=== PATIENT | female | born 1945 | race Hispanic/Latino ===

== ENCOUNTER → 2021-05-06 13:54 | Outpatient (CLI) | payer MEDICARE, SELFPAY ==
[2021-05-06 15:19] LABS: Add Manual Diff / Slide Review NO; Basophils Absolute Auto 0 /uL (0-100); Basophils Percent Auto 0.8 % (0-2); Eosinophils Absolute Auto 0 /uL (0-450); Eosinophils Percent Auto 0.9 % (2-4); Hematocrit 38.1 % (36-46); Hemoglobin 12.7 g/dL (12.0-16.0); Lymphocytes Absolute Auto 1300 /uL (1100-4500); Lymphocytes Percent Auto 24.3 % (25-40); Mean Corpuscular HGB Conc 33.3 % (30-36); Mean Corpuscular Hemoglobin 27.8 PG (26-34); Mean Corpuscular Volume 83.4 fL (80-100); Monocytes Absolute Auto 300 /uL (0-900); Monocytes Percent Auto 5.9 % (3-14); Neutrophils Absolute Auto 3600 /uL (1500-7000); Neutrophils Percent Auto 68.1 % (50-75); Platelet Count 238 X10^3/uL (150-400); Red Blood Cell Count 4.57 X10^6/uL (4.0-5.2); Red Cell Distribution Width 13.8 % (11.6-14.8); White Blood Cell Count 5.3 X10^3/uL (4.5-11.0)
[2021-05-06 15:31] LABS: Hemoglobin A1C% w Est Avg Glu 7.2 % (4.0-6.0)
[2021-05-06 16:00] LABS: BUN Creatinine Ratio 24.3 (6-22); Blood Urea Nitrogen 17 mg/dL (7-17); Calcium 10.4 mg/dL (8.4-10.2); Carbon Dioxide 31 mmol/L (22-32); Chloride 103 mmol/L (98-107); Estimated Glomerular Filt Rate > 60.0 mL/min (>60); Glucose 144 mg/dL (80-110); HEMOLYSIS < 15 (0-50); Potassium 4.1 mmol/L (3.4-5.1); Sodium 141 mmol/L (137-145)
== END ==
PROVIDERS: Referring Provider Orthopaedic Surgery Orthopaedic Surgery of the Spine; Visit Provider Orthopaedic Surgery Orthopaedic Surgery of the Spine
DX: Z01.818 Encounter for other preprocedural examination (principal); R73.9 Hyperglycemia, unspecified
CPT/HCPCS: 36415; 80048; 83036; 85025; 93005; 93010

== ENCOUNTER → 2021-05-14 10:58 | Outpatient (CLI) | payer MEDICARE, SELFPAY ==
--- NOTE | 2021-05-14 11:07 | DI.CT.S_ITS ---
PROCEDURE: CT LUMBAR SPINE WO CON INDICATIONS: Spinal stenosis, lumbar region with neurogenic cla TECHNIQUE: Noncontrast 3 mm thick sections acquired from the T12 level to the sacrum. Sagittal and coronal reformats were constructed. For radiation dose reduction, the following was used: automated exposure control. COMPARISON: [facility] Outside Film, MR, MR LUMBAR SPINE WITHOUT CONTRAST, 01/15/2021, 12:55. FINDINGS: Image quality: Excellent. Bones: No visualized fracture or dislocation. No suspicious osseous lesions. There is severe disc space narrowing at L4-5, L5-S1 with vacuum disc. Multilevel anterior osteophytes are present most severe at L4 and L5. Mild disc bulges are present at L4-5 and L5-S1. Mild spinal stenosis is present at L3-4, moderate L4-5, minimal L5-S1. Minimal left foraminal narrowing is present at L3-4, moderate bilateral, right greater than left at L4-5, moderate bilateral foraminal narrowing L5-S1. Multilevel facet and ligamentum flavum hypertrophy are present. Overall appearance is stable compared to prior exam. Soft tissues: No retroperitoneal masses or hematomas. Visualized aorta is normal in caliber. IMPRESSION: 1. Multilevel spinal stenosis most notable at L4-5 secondary to disc bulge with contributing effect of facet/ligamentum flavum arthropathy. 2. Multilevel foraminal narrowing most notable at L5-S1 predominantly secondary to facet arthropathy. Dictated by: Tianna Hamm M.D. on 05/14/2021 at 13:02 Approved by: Tianna Hamm M.D. on 05/14/2021 at 13:14
== END ==
PROVIDERS: Referring Provider Orthopaedic Surgery Orthopaedic Surgery of the Spine; Visit Provider Orthopaedic Surgery Orthopaedic Surgery of the Spine
DX: M48.062 Spinal stenosis, lumbar region with neurogenic claudication (principal); M48.07 Spinal stenosis, lumbosacral region; M47.816 Spondylosis without myelopathy or radiculopathy, lumbar region; M47.817 Spondylosis without myelopathy or radiculopathy, lumbosacral region; M51.26 Other intervertebral disc displacement, lumbar region
CPT/HCPCS: 72131

== ENCOUNTER → 2021-05-16 11:25 | Outpatient (CLI) | payer MEDICARE, SELFPAY ==
[2021-05-16 11:57] LABS: COVID19 -Nasal RAPID Negative (Negative)
== END ==
PROVIDERS: Referring Provider Nurse Practitioner Family; Visit Provider Nurse Practitioner Family
DX: Z20.822 Contact with and (suspected) exposure to COVID-19 (principal)
CPT/HCPCS: 87635

== ENCOUNTER 2021-05-19 09:03 | Observation (INO) | payer MEDICARE, SELFPAY ==
[2021-05-15 12:43] VITALS: BMI 24.4
[2021-05-18] VITALS (17 sets, daily range): BP systolic 120–178; BP diastolic 52–79; PULSE 77–111; RESP 10–20; TEMP 36.3–37.7; O2SAT 95–100; BMI 24.7
[2021-05-18] MEDS: LACTATED RINGERS 1,000 ML 42 ML IV ×2 (07:25→09:34)
--- NOTE | 2021-05-18 07:44 | PM.PREOP ---
Pre-operative Note COVID-19 COVID-19 status: Negative Result date/Date tested (Pos, Neg/Pending): 05/17/21 Criteria for continued procedure: Expected advancement of disease process, Increased loss of function, Continuing or worsening of significant or severe pain, Deterioration of the patient's condition or overall health and Delay expected to result in less-positive ultimate med/surg outcome Interval Note History & Physical reviewed/Exam performed by Physician: Yes Changes to H&P: No
[2021-05-18] MEDS: CEFAZOLIN 2 GM/20 ML SYRINGE IV (08:05)
--- NOTE | 2021-05-18 08:26 | SUR.OPER ---
Prone on spine table, head in foam head support, padded chest and pelvic supports, gel pad at knees, lower legs supported by pillows; nipples, genitalia and toes free of pressure, arms secured on foam padded arm boards at <90 degrees abduction. Tape over blanket at thigh secured to table.
[2021-05-18] MEDS: BUPIVACAINE LIPOSOME 266 MG/20 ML VIAL INJ (08:31)
[2021-05-18] MEDS: BUPIVACAINE 0.25% (PF) 30 ML, EPINEPHrine 0.3 MG INJ (08:32)
[2021-05-18] MEDS: levETIRAcetam 1,000 MG in SODIUM CHLORIDE 0.9% 100 ML 440 ML IV (10:42)
--- NOTE | 2021-05-18 11:23 | PM.OP.1 ---
Operative Date/Time/Diagnoses Date of procedure: 05/18/21 Time of procedure: 07:45 Pre-op diagnosis: 1. Lumbar post laminectomy syndrome 2. Lumbar spinal stenosis with radiculopathy 3. Lumbar spondylosis with radiculopathy Post-op diagnosis: same Procedure & Clinicians Procedure: 1. L4-5, L5-S1 Postero-lateral and posterior interbody fusion 2. L4-5, L5-S1 interbody cage placement. 3. L4-5, L5-S1 decompressive laminectomy with bilateral facetecomies 4. L4-5, L5-S1 Posterior segmental instrumentation 5. [place] of bone marrow from iliac crest 6. Utilization of microsurgical technique and operating microscope 7. Utilization of [employer] robotic navigation surgery Same procedure as scheduled: Yes Indications: Patient has been having chronic back pain and worsening lumbar radiculopathy. Patient failed multiple conservative management with worsening pain weakness and numbness in her lower extremity. Patient has been having difficulty performing activity of daily living. After discussing risks benefits of treatment options, patient elected proceed with surgery. Surgeon: Jenifer Estes [facility] Specialist: Netta Willoughby Click Yes if Unassisted: No Anesthesia Type: General Operative Notes Closure Type: primary Specimen(s): none sent Prosthetic devices, grafts, tissues, transplants, or devices: GLobus CREO MIS screws, RIse cages Applied: catheter Estimated Blood Loss (mL): 100 Blood products transfused: none Procedure in detail: Patient was seen in the preoperative area. Risks and benefits of the surgery was discussed with the patient. Informed consent was obtained from the patient and placed in the chart. Surgical site was marked. Patient was taken to the operative room. General anesthesia was administered. Prophylactic antibiotic was given to the patient less than 30 min before the incision was made. Patient was placed into a prone position on the Luis table. Patient's back was then prepped and draped in the sterile fashion. Time-out was performed at this time. After patient was prepped and draped, patient's PSIS was palpated and marked bilaterally. Small 1 cm incision was made over the PSIS for placement of the reference probes. Two trocar was placed into the PSIS 1 on each side. The reference probe was attached to the trocar of the reference apparatus. At this time the C-arm imaging was used to confirm AP and lateral of L4-L5, L5-S1 vertebrae and merged the C-arm imaging using the [employer] robotic navigation system with the CT of the lumbar spine. After successful merging was completed and confirmed, skin marker was used to jami out the skin incision using the [employer] robotic arm. Bilateral incision was made at this time. Pre templated trajectory was used and guided using the [employer] robotic navigation system for bilateral L4, L5, S1 pedicle screw placement. This was done by using the robotic arm to guide the high-speed bur to make a cortical entry point. Next a drill was placed also using the robotic arm and guided using the navigation system drilling partially through bilateral L4, L5 and S1 pedicles. Next L4, L5, S1 pedicle screws it was pre templated and measured was placed onto the power bulk tank driver and inserted into the pedicles bilaterally. After all 6 screws were placed C-arm imaging was taken of both AP and lateral to confirm the placement. Excellent placement of the screws were confirmed and a matched precisely with the pre planned screw placement using the navigation system. MARs retractor was inserted using [employer] guidence. Globus MARS retractors was placed inside the incision and docked onto the L4 and L5 lamina. Using microsurgical technique and operating microscope, a L4, L5 laminectomy and L4-5, L5-S1 facetectomy was performed using a [place]ison rongeur. Patient was found have severe lateral recess and neural foramen stenosis which was fully decompressed after the laminectomy facetectomy. More than 75% of the facets were removed during the process of decompression rendering L4-5, L5-S1 level grossly unstable and required a fusion procedure at the same time. Patient was found have significant epidural scarring from previous laminectomy surgery. The scar tissue was carefully resected during the process of decompression while protecting the dura during the process. The disc space at L4-5, L5-S1 was identified, and a total diskectomy was performed at L4-5, L5-S1 level. The endplates were decorticated using a rasp and shaver. The total diskectomy and decortication was performed at L4-5, L5-S1 level in order to to accomplish a L4-5, L5-S1 fusion. The local bone from the laminectomy and facetectomy was saved for local bone grafting. After the total diskectomy and decortication was completed, Tr[employer]ecta bone graft material was combined with local bone that was harvested earlier. At this time, a separate skin is incision was made over the iliac crest. A Jamshidi needle was inserted into the iliac crest through a separate skin incision. 5 cc of bone marrow aspiration was obtained through the separate skin incision using a Jamshidi needle from the iliac crest. The bone marrow aspiration was combined with local bone and the Trifecta bone grafting material. The bone grafting material was placed into the L4-5, L5-S1 interbody space along with a expandable cage. The cage was expanded to its maximum height using the torque limiting screwdriver. The disc preparation as well as the cage insertion were also performed under navigation guidance. After the cage was placed, AP and lateral C-arm imaging was taken to confirm placement of the cage and excellent position was confirmed. Globus MARS retractor was inserted and docked onto the L4-5, L5-S1 posterolateral gutter on the right side. Using the power drill, posterior-lateral decortication was performed at L4-5, L5-S1 level until bleeding cortical bone was identified. The remaining bone grafting material was placed into the L4-5, L5-S1 posterior lateral gutter he order to accomplish posterolateral fusion at the L4-5, L5-S1 level. At this time the tulips were attached to the L4, L5, S1 pedicle screw shanks. After measuring the length of the rods, they were inserted into the tulips of the pedicle screws and locked in place using locking caps and torque limiting screwdriver bilaterally. Total 6 caps and 2 titanium rods was used in order to complete the posterior instrumentation construct. After all the hardware was placed, and confirmed with AP and lateral C-arm imaging, the wound was then irrigated with sterile normal saline and packed with Ray-Fariha gauze for 3 min to accomplish hemostasis. After the gauze was removed the deep fascia was closed with #1 Vicryl suture. The subcutaneous layer was closed with 2-0 Vicryl. The skin was closed with skin davi. Patient tolerated the procedure well. There were no complications. Neuro monitoring system was used to monitor patient's neurologic status throughout entire procedure. There was no disturbance of the neural monitoring signals throughout the case. Complications: none Post-operative Condition: stable Disposition: PACU Plan for aftercare: admit to inpatient hospital
--- NOTE | 2021-05-18 11:30 | DI.RAD.S_ITS ---
PROCEDURE: XR LUMBAR SPINE 2-3V INDICATIONS: L4-5, L5-S1 TLIF TECHNIQUE: AP and lateral fluoroscopic views obtained. COMPARISON: None. FINDINGS: Bones: AP and lateral fluoroscopic views of the lumbar spine with discectomy and interbody fixation and pedicular screw and adriel fixation of L4-5 and L5-S1. Soft tissues: Overlying bowel gas pattern is normal. No suspicious soft tissue calcifications. IMPRESSION: Intraoperative fluoroscopic views provided. Dictated by: Ilir العلي M.D. on 05/18/2021 at 12:23 Approved by: Ilir العلي M.D. on 05/18/2021 at 12:24
[2021-05-18] MEDS: SODIUM CHLORIDE 0.9% 1,000 ML 100 ML IV ×2 (13:31→23:29)
[2021-05-18] MEDS: HYDROMORPHONE 0.5 MG INJ IV (13:32)
--- NOTE | 2021-05-18 14:26 | PC.NURSE ---
post op confusion 1300 pt having some acute confusion. does not know where she is or why she's in the hospital and is unable to states her name or her grand daughter's name. Pt's grandaughter states that pt had a similar episode on in which she was shaking uncontrollably and was disoriented. Pt was taken for the ER and after testing, no cause was found per her grand daughter. Mabel then states the she just snapped out of it and didn't remember any of it. Per report from MANAGEMENT SERVICES TECHNICIAN, pt did have seizure like activity in surgery and was medicated for the same. MD aware as was with pt during the time.
--- NOTE | 2021-05-18 15:27 | PT-IP ANOTE ---
Per RN, pt is acutely confused and seizure precautions now in place. Hold PT evaluation at this time.
[2021-05-18] MEDS: CEFAZOLIN 1 GM VIAL IV ×2 (16:49→23:29)
[2021-05-18] MEDS: INSULIN LISPRO 100 UNIT/ML 3ML VIAL SUBCUT (16:57)
[2021-05-18] MEDS: OXYCODONE IR 10 MG TABLET PO ×3 (17:07→23:29)
--- NOTE | 2021-05-18 17:16 | PC.NURSE ---
1715 pt now alert and oriented to all except date. conversing with grand daughter without difficulty. Able to identify pain and agreeable to pain management. assisted to reposition to sitting up for applesauce and pain medication. seizure pads remain in place.
[2021-05-18] MEDS: ATORVASTATIN 20 MG TABLET 10 MG PO (21:18)
[2021-05-18] MEDS: DOCUSATE 100 MG CAPSULE PO (21:20)
[2021-05-18] MEDS: GABAPENTIN 600 MG TABLET PO (21:20)
[2021-05-18] MEDS: SENNOSIDES 8.6 MG TABLET 17.2 MG PO (21:20)
[2021-05-18] MEDS: METFORMIN 850 MG TABLET PO (21:20)
[2021-05-18] MEDS: INSULIN LISPRO 100 UNIT/ML 3ML VIAL 20 UNIT SUBCUT (21:21)
[2021-05-18] MEDS: INSULIN GLARGINE 100 UNIT/ML 3ML PEN 20 UNIT SUBCUT (21:22)
--- NOTE | 2021-05-18 22:24 | PC.NURSE ---
Pts pain medication did not save when scanned d/t computer dying when chart was open. This RN documented the medication without scanning medication again.
[2021-05-19 00:14] VITALS: BP 132/55; PULSE 76; RESP 18; TEMP 37.1; O2SAT 97
[2021-05-19 04:17] VITALS: BP 117/43; PULSE 76; RESP 18; TEMP 37; O2SAT 98
[2021-05-19 06:34] LABS: Hematocrit 30.8 % (36-46); Hemoglobin 10.3 g/dL (12.0-16.0)
--- NOTE | 2021-05-19 08:27 | PM.PNPO.1 ---
Subjective Subjective Interval history: POD#1 s/p L4-5, L5-S1 TLIF. Pt is malaysian-speaking and interviewed today with the aid of her granddaughter, Malgorzata. Pt was noted to have seizure activity during intraoperative neuromonitoring and was given keppra during surgery. Malgorzata says she had a seizure episode on and was transported to the ED, where she was diagnosed as having a panic attack. Family and patient are unaware of any other seizure activity prior to these two episodes. Malgorzata said her grandmother was confused throughout the day yesterday but seems to have cleared. Plan is for Sita to return to home with the help and care of her granddaughter, Malgorzata, and Malgorzata's mother. Today she complains of back pain that she rates as 6/10. She also complains of right leg discomfort; this was present prior to surgery. Exam Vital Signs (past 8 hours): - 05/19/21 04:17 Temperature 98.6 F Pulse Rate 76 Respiratory Rate 18 Blood Pressure 117/43 L Pulse Oximetry 98 Oxygen Delivery Method Room Air Oxygen Flow Rate 0 Narrative Exam Narrative: 5/5 strength in dorsiflexors and plantarflexors bilaterally. 5/5 quadriceps and hamstrings on left, 4/5 on right. Sensation to light touch intact BLE. Calves soft, compressible, nontender, without palpable cords or masses. Const General: cooperative Orientation: oriented x3 and other (tired but arouses easily to voice; obeys commands and answers questions ) Objective Labs Result Diagrams: 05/19/21 05:45 Labs: Laboratory Results - last 24 hr 05/19/21 05:45 Hgb 10.3 L Hct 30.8 L PFSH Medical History (Updated 05/19/21 @ 08:36 by Netta Willoughby PA-C) Anxiety Arthritis Diabetes Heartburn HLD (hyperlipidemia) HTN (hypertension) Lumbar back pain with radiculopathy affecting right lower extremity Osteoarthritis of spine with radiculopathy, lumbosacral region Panic attacks Seizure disorder Syriac speaking patient Spinal stenosis of lumbar region at multiple levels Surgical History (Updated 05/19/21 @ 08:35 by Netta Willoughby PA-C) History of knee replacement (2012) History of lumbar surgery (1996) Hx of breast biopsy Hx of colonoscopy Social History household members: spouse and family Smoking Status: Never smoker alcohol intake: current Assessment & Plan Post-op Assessment and plan (1) Status post lumbar spinal fusion: Assessment and Plan narrative: Mobilize with PT. Catheter out today. Plan to d/c home with family, no sooner than tomorrow given degree of pain and PT setback due to confusion yesterday. (2) Lumbar back pain with radiculopathy affecting right lower extremity: Assessment and Plan narrative: Will make acetaminophen scheduled and decrease oxycodone from 10 mg to 5 mg to help with pain control and limit sedation. May add dexamethasone taper if right leg symptoms persist. (3) Postoperative anemia due to acute blood loss: Assessment and Plan narrative: Expected, asymptomatic; no intervention needed at this time. (4) Seizure disorder: Assessment and Plan narrative: Continue seizure precautions. Can be worked up by PCP as an outpatient. Postoperative Procedures: Procedures Operation Date: 05/18/21 07:45 Actual Procedure Side Surgeon p L4-5, L5-S1 TLIF w. posterior instrumentation - Robot Jenifer Esets MD Quality VTE Deep Vein Thrombosis/Pulmonary Embolism Present on Admission: No
[2021-05-19] MEDS: LOSARTAN 25 MG TABLET PO (08:36)
[2021-05-19] MEDS: DOCUSATE 100 MG CAPSULE PO ×2 (08:36→21:07)
[2021-05-19] MEDS: OXYCODONE IR 10 MG TABLET 5 MG PO (08:36)
[2021-05-19] MEDS: METFORMIN 850 MG TABLET PO ×3 (08:36→21:12)
[2021-05-19] MEDS: hydroCHLOROthiazide 25 MG TABLET PO (08:36)
--- NOTE | 2021-05-19 09:20 | PT.IIE ---
Current Diagnoses Acute posthemorrhagic anemia (05/19/21) Epilepsy, unspecified, not intractable, without status epilepticus (05/19/21) Other spondylosis with radiculopathy, lumbosacral region (05/19/21) Spinal stenosis, lumbar region without neurogenic claudication (05/19/21) Radiculopathy, lumbar region (05/19/21) Arthrodesis status (05/19/21) Surgery Performed Operation Date: 05/18/21 07:45 Actual Procedures p L4-5, L5-S1 TLIF w. posterior instrumentation - Robot - Jenifer Estes MD Medical History (Last Updated 05/19/21 @ 08:36 by Netta Willoughby PA-C) Anxiety Arthritis Diabetes Heartburn HLD (hyperlipidemia) HTN (hypertension) Lumbar back pain with radiculopathy affecting right lower extremity Osteoarthritis of spine with radiculopathy, lumbosacral region Panic attacks Seizure disorder [place] Citizen speaking patient Spinal stenosis of lumbar region at multiple levels Physical Therapy Inpatient Evaluation/Re-Eval M1 PT/OT-IP Prior Functional Status Start: 05/18/21 15:12 Freq: NEEDED Status: Active Protocol: Document 05/19/21 09:20 AB (Rec: 05/19/21 12:42 AB [id number]) Medical Review Prior Functional Status Medical History Reviewed Yes Communication pt is [place] Citizen speaking only: grand daughter in room and assisted with translation Mobility and Gait grand daughter stated that pt is modified independent with all mobilities and ambulation without AD but occasionally uses a quad cane depending on back pain Social History Household Members family Living Arrangements House Number of Floors (Floors) One Floor Number of Stairs To Enter/Railing? no steps to enter Home Environment Standard Height Toilet,High Toilet,Walk in Shower Home Equipment Four Wheel Walker,Quad Cane, Shower Seat with Backrest,Grab Bars In Shower Additional Social History Comment grand daughter and pt's daughter will assist pt at home M2 PT-IP Current Condition Start: 05/18/21 15:12 Freq: NEEDED Status: Active Protocol: Document 05/19/21 09:20 AB (Rec: 05/19/21 12:42 AB [email or web address]) Physical Therapy Current Condition Current Condition Evaluation Date 05/19/21 Treatment Diagnosis s/p L4-5, L5S1 TLIF; difficulty in walking Onset Date 05/18/21 M3 PT-IP Subjective Start: 05/18/21 15:12 Freq: NEEDED Status: Active Protocol: Document 05/19/21 09:20 AB (Rec: 05/19/21 12:42 AB [email or web address]) Subjective Physical Therapy Visit Type Type Initial Evaluation Visit Start Time 09:20 Visit Stop Time 10:15 Total Visit Minutes 55 Number of DIESEL POWER SHOVEL OPERATOR Visits 0 Therapy Pain Assessment Pain When Pain Assessed At Rest Pain Present Pain Present Pain Reported Location Back Intensity 6 Scale Used Numeric (0 - 10) Pain Behaviors Crying,Facial Grimacing, Guarding Pain Management Techniques Apply Cold,Distraction, Elevation,Modification of Treatment,Re-positioning, Timing of Activity with Medications M4 PT-IP Mobility and Gait Start: 05/18/21 15:12 Freq: NEEDED Status: Active Protocol: Document 05/19/21 09:20 AB (Rec: 05/19/21 12:42 [email or web address]) PT-Bed Mobility Assessment Rolling Type of Rolling Log Rolling Level of Assist Maximal Assistance Supine to Sit Supine to Sit Maximum Assistance,1 Person Assistance PT-Transfer Assessment Sit to and From Stand Sit to and from Stand Maximum Assistance,1 Person Assistance,Use of Upper Extremities Equipment Transfer Assistive Device Gait Belt,Front Wheeled Walker Orthotic/Prosthetic Devices or Brace: No Transfers Transfer Destination Chair Transfer Technique Stand Step Pivot Transfer Ability Level of Assist Moderate Assistance,Maximum Assistance,1 Person Assistance ,Use of Upper Extremities Comments Mobility Comments educated pt and grand daughter regarding pt's back precautions an log roll bed mobility. pt completed log roll supine to sit max A and max cues. completed sit to stand max A and cues and step transfer to chair using FWW mod to max A. pt agreed to ambulate and completed sit to stand from the chair max A and cues and ambulated in room ~ 20 ft using FWW mod to max A and cues. c/o back pain but agreed to sit up on chair. positioned pt on chair. call ight and table placed within reach. left pt with grand daughter informed grand daugther regarding caregiver training this afternoon when appropriate and agreed. Gait Assessment Gait Gait Assistance Required: Moderate Assistance,Maximum Assistance,1 Person Assist Distance (Feet) 20 Able to Maintain Weight Bearing Status Yes During Gait Assistive Devices Assistive Device Gait Belt,Front Wheeled Walker Orthotic/Prosthetic Devices or Brace: No Gait Deviations General Gait Pattern Decreased Stride Length, Decreased Feet Clearance,Step- to Gait Factors Limiting Gait Function Factors Limiting Gait Function Decreased Activity Tolerance, Decreased Strength,Difficulty Following Directions,Limited Range of Motion,Pain,Poor Balance,Poor Safety Awareness PT-Balance Assessment Sitting Balance and Reactions Static Sitting Balance Ability Good Dynamic Sitting Balance Ability Fair Standing Balance and Reactions Static Standing Balance Ability Fair Dynamic Standing Balance Ability Poor Device Used FWW M5 PT-IP Objective Assessments Start: 05/18/21 15:12 Freq: NEEDED Status: Active Protocol: Document 05/19/21 09:20 AB (Rec: 05/19/21 12:42 AB [email or web address]) Orientation Orientation/Cognition Level of Alertness Alert Orientation Name,Place,Situation Language Function Ability Ugandan as Second Language Safety Awareness Decreased Safety Awareness Memory Description Short Term Impaired Gross Range of Motion Lower Extremity ROM Assessment Within Functional Limits Strength Lower Extremity Strength Assessment Right Impaired Hip 3+/5 Knee 3+/5 Sensation Assessment Sensation Gross Sensation Right LE Impaired,Left LE Impaired Sensation Description Tingling Comments Sensation Comments c/o tingling on B feet but has chronic tingling prior to sx Muscle Tone Muscle Tone WNL Yes M6 PT-IP Treatment Start: 05/18/21 15:12 Freq: NEEDED Status: Active Protocol: Document 05/19/21 09:20 AB (Rec: 05/19/21 12:42 [email or web address]) Physical Therapy Treatment Education Education Provided Precautions,Weight Bearing Status,Post-Op Packet,Safety M7 PT-IP Assessment and Plan Start: 05/18/21 15:12 Freq: NEEDED Status: Active Protocol: Document 05/19/21 09:20 AB (Rec: 05/19/21 12:42 [email or web address]) PT Summary Assessment and Plan Potential Rehabilitation Potential Fair Status of Condition at Evaluation Evolving Summary Impairments Pain,ROM,Strength,Balance, Coordination,Sensation,Tone, Cognition,Bed Mobility, Transfers,Gait,Activity Tolerance Assessment Summary pt requiring mod to max A and max cues with mobility. Caregiver training will be conducted when appropriate. pt plans to go home with family to assit her. will continue to assess progress. Goals Bed Mobility Goal Standby Assistance Transfer Goal Standby Assistance,Front Wheeled Walker Gait Goal Standby Assistance,Front Wheel Walker Gait Distance 150 Days to Meet Goals 5 Frequency of Treatment Frequency Of Treatment Twice a Day Treatment Plan Physical Therapy Treatment Plan Bed Mobility Training,Transfer Training,Gait Training, Therapeutic Exercise,Balance Retraining,Post Op Education, Discharge Planning,Hot or Cold Pack,Neuromuscular Re-ed, Coordination Retraining,Manual Therapy Other Recommendations and Next Treatment caregiver training Focus Precautions Lumbar Precautions Log Roll,No Twisting,Limit Bending,Lifting Restriction of 10 lbs,Gait Belt above Incisional Area Recommendations To Nursing Amount of Assist Needed 1 Person Assist Discharge Recommendations PT Discharge Recommendations Home with 24/7 Assist Available,Home Health Equipment Needed for Home Before FWW if not safe with 4WW Discharge Transportation Needs at Discharge Private Vehicle
[2021-05-19 09:38] VITALS: BP 120/47; PULSE 76; RESP 16; TEMP 37.1; O2SAT 97
--- NOTE | 2021-05-19 11:38 | OT.IP.EVAL ---
Current Diagnoses Acute posthemorrhagic anemia (05/19/21) Epilepsy, unspecified, not intractable, without status epilepticus (05/19/21) Other spondylosis with radiculopathy, lumbosacral region (05/19/21) Spinal stenosis, lumbar region without neurogenic claudication (05/19/21) Radiculopathy, lumbar region (05/19/21) Arthrodesis status (05/19/21) Surgery Performed Operation Date: 05/18/21 07:45 Actual Procedures p L4-5, L5-S1 TLIF w. posterior instrumentation - Robot - Jenifer Estes MD Past Medical History (Last Updated 05/19/21 @ 08:36 by Netta Willoughby PA-C) Anxiety Arthritis Diabetes Heartburn History of knee replacement (2012) History of lumbar surgery (1996) HLD (hyperlipidemia) HTN (hypertension) Hx of breast biopsy Hx of colonoscopy Lumbar back pain with radiculopathy affecting right lower extremity Osteoarthritis of spine with radiculopathy, lumbosacral region Panic attacks Seizure disorder French speaking patient Spinal stenosis of lumbar region at multiple levels Surgical History (Last Updated 05/15/21 @ 12:20 by Yahaira Sun RN) History of knee replacement (2012) History of lumbar surgery (1996) Hx of breast biopsy Hx of colonoscopy Occupational Therapy Inpatient Evaluation/Re-Eval M1 PT/OT-IP Prior Functional Status Start: 05/18/21 15:12 Freq: NEEDED Status: Active Protocol: Document 05/19/21 11:07 [facility] (Rec: 05/19/21 13:00 [facility] [id number]) Medical Review Prior Functional Status Medical History Reviewed Yes Communication pt is French speaking only: grand daughter in room and assisted with translation Mobility and Gait grand daughter stated that pt is modified independent with all mobilities and ambulation without AD but occasionally uses a quad cane depending on back pain Activities of Daily Living and IADL's Grand daughter states pt able to do her ADL needs with increased time due to pain. Prior Functional Level (Other details) Pt's grand daughter and daughter to assist pt at home. Social History Household Members family Living Arrangements House Number of Floors (Floors) One Floor Number of Stairs To Enter/Railing? no steps to enter from the back door-ramp Home Environment Standard Height Toilet,High Toilet,Walk in Shower Home Equipment Front Wheel Walker,Four Wheel Walker,Quad Cane,Shower Seat with Backrest,Hand Held Shower ,Perishable Freight Inspector,Grab Bars In Shower Additional Social History Comment grand daughter and pt's daughter will assist pt at home M2 OT-IP Current Condition Start: 05/19/21 12:43 Freq: Status: Active Protocol: Document 05/19/21 11:07 [facility] (Rec: 05/19/21 13:00 [facility] [id number]) Occupational Therapy Current Condition Current Condition Evaluation Date 05/19/21 Treatment Diagnosis S/p L4-5, L5-S1 TLIF Diagnosis Onset Date 05/18/21 Post Operative Precautions Lumbar Precautions Log Roll,No Twisting,Limit Bending,Lifting Restriction of 10 lbs,Gait Belt above Incisional Area M3 OT- IP Subjective and Pain Start: 05/19/21 12:43 Freq: Status: Active Protocol: Document 05/19/21 11:07 [facility] (Rec: 05/19/21 13:00 [facility] [id number]) OT- Subjective Occupational Therapy Visit Type Type Initial Evaluation Visit Start Time 11:07 Visit Stop Time 11:38 Total Visit Minutes 31 Occupational Therapy Visit Comments Patient Comments Pt after encouragement from pt 's grand daughter agreed to get up. Patient/Caregiver Goals To go home. OT Pain Assessment Pain When Pain Assessed At Rest Pain Present Pain Present Pain Reported Location Back Intensity 3 M4 OT- IP ADL's Start: 05/19/21 12:43 Freq: Status: Active Protocol: Document 05/19/21 11:07 [facility] (Rec: 05/19/21 13:00 [facility] [id number]) OT ADL-Grooming Comments OT Grooming Comments Not performed. OT ADL-Oral Care Comments Oral Care Comments Educated best for pt to spit into the cup to best follow her back precautions. OT ADL-Dressing General Eval Lower Body Dressing Ability Maximum Assistance Areas Needing Assistance Socks Comments OT Dressing Comments Pt able to use obstetrics tech to assist to doff her socks. Pt's family will be assisting her for her needs of dressing. OT ADL-Toileting Comments OT Toileting Comments Pt not able to comfortably/ effectively reach to be able to her hygiene after bowel movement. Pt's grand daughter aware may have to assist. Suggested use of wet one and pads. OT ADL-Bathing Comments OT Bathing Comments Pt states to try tomorrow. M5 OT- IP IADL's Start: 05/19/21 12:43 Freq: Status: Active Protocol: Document 05/19/21 11:07 [facility] (Rec: 05/19/21 13:00 [facility] [id number]) OT-Instrumental Activities of Daily Living Home Safety Awareness Home Safety Comments Pt's family to be there to assist for all her needs at this time. M6 OT- IP Functional Cognition Start: 05/19/21 12:43 Freq: Status: Active Protocol: Document 05/19/21 11:07 [facility] (Rec: 05/19/21 13:00 [facility] [id number]) Cognitive Factors Limiting Selfcare Function Cognitive Comments Cognitive Assessment Comments Pt is French speaking and able to follow simple commands after translation from her grand daughter. Pt having trouble to follow bed mobility needs as seems to have difficulty to understand the technique of log rolling. OT- Vision and Hearing OT- Hearing Assessment OT- Hearing Assessment WFL M7 OT- IP Mobility and Balance Start: 05/19/21 12:43 Freq: Status: Active Protocol: Document 05/19/21 11:07 [facility] (Rec: 05/19/21 13:00 [facility] [id number]) OT-Transfer Assessment Sit to and From Stand Sit to and from Stand Maximum Assistance Transfers Transfer Ability Moderate Assistance Technique Transfer Destination Bed,Chair,Toilet Transfer Technique Stand Step Pivot Devices Transfer Assistive Devices Gait Belt,Front Wheeled Walker Comments Mobility Comments MAXA to stand to FWW, MODA with FWW to help guide the FWW and for balance. Initiated education of how to christy/doff the gait belt with pt's grand daughter. To do more training tomorrow. OT- Balance Assessment Sitting Balance and Reactions Static Sitting Balance Ability Good Dynamic Sitting Balance Ability Fair Standing Balance and Reactions Static Standing Balance Ability Poor Dynamic Standing Balance Ability Poor M8 OT- IP Objective Assessments Start: 05/19/21 12:43 Freq: Status: Active Protocol: Document 05/19/21 11:07 [facility] (Rec: 05/19/21 13:00 [facility] [id number]) OT-Muscle Tone Assessment Muscle Tone WNL Yes M9 OT- IP Assessment and Plan Start: 05/19/21 12:43 Freq: Status: Active Protocol: Document 05/19/21 11:07 [facility] (Rec: 05/19/21 13:00 [facility] [id number]) OT Summary Assessment and Plan Potential Rehabilitation Potential Good Analytic Complexity at Evaluation Low Summary OT Impairments Pain,Balance,Functional Cognition,Functional Mobility, Dressing,Toileting,Bathing, Toilet Transfers,Shower Transfers,Activity Tolerance Progress Towards Goals Slow Progress due to Pain,Slow Progress due to Medical Issues,Slow Progress due to Cognition Assessment Summary Pt is Low complexity and main barriers are language barrier are pt is French speaking and that her grand daughter is translating at this time, pain , and having difficulty with transitions ,and now needing extensive assist for ADl needs . Pending caregiver training and progress pt to go home with 24/7 assist versus skilled rehab. Goals Grooming Goal Independent Dressing Goal Minimal Assistance Toileting Goal Minimal Assistance Bathing Goal Minimal Assistance Toilet Transfer Goal Contact Guard Assistance Shower Transfer Goal Minimal Assistance Patient/Caregiver Education Goal Demonstrate Post-Op Precautions,Caregiver Independent Assisting Patient Days to Meet Goals 10 Frequency of Treatment Frequency Of Treatment Once a Day Treatment Plan OT Treatment Plan ADL Training,Functional Cognition Training,Functional Mobility,Patient/Family Education,Discharge Planning Other Treatment Recommendations and Next caregiver training, shower Treatment Focus Discharge Recommendations OT Discharge Recommendations Home with 24/7 Assist Available,SNF Rehab,Home vs SNF Transportation Needs at Discharge Private Vehicle,Wheelchair/ Cabulance
[2021-05-19] MEDS: OXYCODONE IR 5 MG TABLET PO ×3 (12:09→23:36)
[2021-05-19] MEDS: ACETAMINOPHEN 325 MG TABLET 650 MG PO ×3 (12:10→23:35)
[2021-05-19] MEDS: INSULIN LISPRO 100 UNIT/ML 3ML VIAL SUBCUT ×3 (12:12→21:06)
--- NOTE | 2021-05-19 13:30 | PT.IPTN ---
Current Diagnoses Acute posthemorrhagic anemia (05/19/21) Epilepsy, unspecified, not intractable, without status epilepticus (05/19/21) Other spondylosis with radiculopathy, lumbosacral region (05/19/21) Spinal stenosis, lumbar region without neurogenic claudication (05/19/21) Radiculopathy, lumbar region (05/19/21) Arthrodesis status (05/19/21) Surgery Performed Operation Date: 05/18/21 07:45 Actual Procedures p L4-5, L5-S1 TLIF w. posterior instrumentation - Robot - Jenifer Estes MD Physical Therapy Treatment Note M2 PT-IP Current Condition Start: 05/18/21 15:12 Freq: NEEDED Status: Active Protocol: Document 05/19/21 09:20 [facility] (Rec: 05/19/21 12:42 [facility] [id number]) Physical Therapy Current Condition Current Condition Evaluation Date 05/19/21 Treatment Diagnosis s/p L4-5, L5S1 TLIF; difficulty in walking Onset Date 05/18/21 M3 PT-IP Subjective Start: 05/18/21 15:12 Freq: NEEDED Status: Active Protocol: Document 05/19/21 13:30 [facility] (Rec: 05/19/21 15:56 AB [id number]) Subjective Physical Therapy Visit Type Type Treatment Note Visit Start Time 13:30 Visit Stop Time 14:20 Total Visit Minutes 50 Number of MOVEMENT THERAPIST Visits 0 Physical Therapy Visit Comments Patient Comments pt agreeable to do PT; grand daughter in room with pt Therapy Pain Assessment Pain When Pain Assessed At Rest Pain Present Pain Present Pain Reported Location Back Intensity 5 Scale Used Numeric (0 - 10) Pain Management Techniques Distraction,Modification of Treatment,Re-positioning, Timing of Activity with Medications M4 PT-IP Mobility and Gait Start: 05/18/21 15:12 Freq: NEEDED Status: Active Protocol: Document 05/19/21 13:30 [facility] (Rec: 05/19/21 15:56 AB [id number]) PT-Bed Mobility Assessment Rolling Level of Assist Moderate Assistance,1 Person Assistance Supine to Sit Supine to Sit Moderate Assistance Sit to Supine Sit to Supine Moderate Assistance PT-Transfer Assessment Sit to and From Stand Sit to and from Stand Moderate Assistance,1 Person Assistance,Use of Upper Extremities Equipment Transfer Assistive Device Gait Belt,Front Wheeled Walker Orthotic/Prosthetic Devices or Brace: No Comments Mobility Comments pt supine in bed. grand daughter in room with pt. caregiver training conducted. daughter was able to assist pt with log roll supine to sit mod A. Requires cues from PT to complete task. educated pt's grand daugther regarding use of safety belt and how to assist pt with sit to stand and ambulation. grand daughter was able to assist pt with sit to stand and ambulated pt ~ 30 ft using FWW min to mod A. able to cue pt for upright posture and steadiness. pt rested and agreed to ambulate again and completed another 30 ft with grand daughter assisting. pt requested to go back to bed afterwards. pt completed sit to supine mod A and max cues. positioned pt in bed. call light and table placed within reach. Gait Assessment Gait Gait Assistance Required: Minimum Assistance,Moderate Assistance Distance (Feet) 30 Able to Maintain Weight Bearing Status Yes During Gait Assistive Devices Assistive Device Gait Belt,Front Wheeled Walker Orthotic/Prosthetic Devices or Brace: No Gait Deviations General Gait Pattern Decreased Stride Length, Decreased Feet Clearance,Step- to Gait Factors Limiting Gait Function Factors Limiting Gait Function Decreased Activity Tolerance, Decreased Sensation,Decreased Strength,Limited Range of Motion,Pain,Poor Balance,Poor Safety Awareness Comments Gait Comments pls refer to mobility section with details M5 PT-IP Objective Assessments Start: 05/18/21 15:12 Freq: NEEDED Status: Active Protocol: Document 05/19/21 09:20 [facility] (Rec: 05/19/21 12:42 AB [id number]) Orientation Orientation/Cognition Level of Alertness Alert Orientation Name,Place,Situation Language Function Ability Maori as Second Language Safety Awareness Decreased Safety Awareness Memory Description Short Term Impaired Gross Range of Motion Lower Extremity ROM Assessment Within Functional Limits Strength Lower Extremity Strength Assessment Right Impaired Hip 3+/5 Knee 3+/5 Sensation Assessment Sensation Gross Sensation Right LE Impaired,Left LE Impaired Sensation Description Tingling Comments Sensation Comments c/o tingling on B feet but has chronic tingling prior to sx Muscle Tone Muscle Tone WNL Yes M6 PT-IP Treatment Start: 05/18/21 15:12 Freq: NEEDED Status: Active Protocol: Document 05/19/21 13:30 [facility] (Rec: 05/19/21 15:56 AB [id number]) Physical Therapy Treatment Education Education Provided Safety M7 PT-IP Assessment and Plan Start: 05/18/21 15:12 Freq: NEEDED Status: Active Protocol: Document 05/19/21 13:30 [facility] (Rec: 05/19/21 15:56 [facility] [id number]) PT Summary Assessment and Plan Potential Rehabilitation Potential Good Summary Impairments Pain,ROM,Strength,Balance, Coordination,Sensation,Tone, Cognition,Bed Mobility, Transfers,Gait,Activity Tolerance Progress Towards Goals Slow Progress due to Pain,Slow Progress due to Activity Tolerance Assessment Summary caregiver training conducted but will require continued training. caregiver still requires cues from PT to assist and instruct pt. will continue to assess progress. Goals Bed Mobility Goal Standby Assistance Transfer Goal Standby Assistance,Front Wheeled Walker Gait Goal Standby Assistance,Front Wheel Walker Gait Distance 150 Days to Meet Goals 5 Frequency of Treatment Frequency Of Treatment Twice a Day Treatment Plan Physical Therapy Treatment Plan Bed Mobility Training,Transfer Training,Gait Training, Therapeutic Exercise,Balance Retraining,Post Op Education, Discharge Planning,Hot or Cold Pack,Neuromuscular Re-ed, Coordination Retraining,Manual Therapy Other Recommendations and Next Treatment caregiver training Focus Precautions Lumbar Precautions Log Roll,No Twisting,Limit Bending,Lifting Restriction of 10 lbs,Gait Belt above Incisional Area Recommendations To Nursing Amount of Assist Needed 1 Person Assist Discharge Recommendations PT Discharge Recommendations Home with 24/7 Assist Available,Home Health Equipment Needed for Home Before FWW if not safe with 4WW Discharge Transportation Needs at Discharge Private Vehicle
[2021-05-19 17:40] VITALS: BP 139/63; PULSE 88; RESP 16; TEMP 36.8; O2SAT 97
[2021-05-19 19:50] VITALS: BP 135/59; PULSE 77; RESP 18; TEMP 36.8; O2SAT 98
[2021-05-19] MEDS: ATORVASTATIN 20 MG TABLET 10 MG PO (21:07)
[2021-05-19] MEDS: GABAPENTIN 600 MG TABLET PO (21:07)
[2021-05-19] MEDS: INSULIN GLARGINE 100 UNIT/ML 3ML PEN 20 UNIT SUBCUT (21:07)
[2021-05-19] MEDS: SENNOSIDES 8.6 MG TABLET 17.2 MG PO (21:07)
[2021-05-19] MEDS: SODIUM CHLORIDE 0.9% FLUSH 10 ML IV (21:10)
[2021-05-20 00:05] VITALS: BP 151/67; PULSE 87; RESP 18; TEMP 36.8; O2SAT 96
[2021-05-20 04:44] VITALS: BP 126/49; PULSE 86; RESP 18; TEMP 36.5; O2SAT 94
[2021-05-20] MEDS: ACETAMINOPHEN 325 MG TABLET 650 MG PO ×2 (05:55→13:29)
--- NOTE | 2021-05-20 06:18 | PC.NURSE ---
Pts radford was removed at 0600 this morning. Patient tolerated well and has till 1400 today to void. Pt and granddaughter Mabel were educated on calling out for assistance when getting up, call light within reach.
[2021-05-20 07:56] VITALS: BP 122/56; PULSE 79; RESP 16; TEMP 36.4; O2SAT 95
--- NOTE | 2021-05-20 08:23 | PM.DS.1 ---
History of Present Illness History of Present Illness Date Patient Seen: 05/20/21 Time Patient Seen: 08:24 Chief complaint: Low back pain Narrative: Patient's pain is moderate to severe depending on her activity. Denies fever or chills. No nausea or vomiting. Patient has her daughter at bedside that interprets. Otherwise without complaints. Discharge Providers Provider Date of admission: 05/19/21 09:03 Discharge Date: 05/20/21 Primary care physician: Arian Ferreira DO Consults: 05/18/21 12:49 Consult to Occupational Therapy Evaluate & Treat Comment: Physician Instructions: Evaluate and treat Consult to Physical Therapy Evaluate & Treat Comment: Physician Instructions: Evaluate and Treat Discharge provider: James Yun PA-C Summary Hospital Course Discharge Diagnosis: 1. Lumbar post laminectomy syndrome 2. Lumbar spinal stenosis with radiculopathy 3. Lumbar spondylosis with radiculopathy Hospital Course: 1. L4-5, L5-S1 Postero-lateral and posterior interbody fusion 2. L4-5, L5-S1 interbody cage placement. 3. L4-5, L5-S1 decompressive laminectomy with bilateral facetecomies 4. L4-5, L5-S1 Posterior segmental instrumentation 5. [place] of bone marrow from iliac crest 6. Utilization of microsurgical technique and operating microscope 7. Utilization of [employer] robotic navigation surgery Same procedure as scheduled: Yes Indications: Patient has been having chronic back pain and worsening lumbar radiculopathy. Patient failed multiple conservative management with worsening pain weakness and numbness in her lower extremity.? Patient has been having difficulty performing activity of daily living.? After discussing risks benefits of treatment options, patient elected proceed with surgery. Surgeon: Jenifer Estes Silk Screen Cutter: Netta Willoughby Click Yes if Unassisted: No Anesthesia Type: General Operative Notes Closure Type: primary Specimen(s): none sent Prosthetic devices, grafts, tissues, transplants, or devices: GLobus CREO MIS screws, RIse cages Applied: catheter Estimated Blood Loss (mL): 100 Blood products transfused: none Patient admitted to the hospital for the above-mentioned procedure. Patient consented to the same. Patient taken to the operating room on May 18, 2021. Patient back in her room recovering well as in stable condition. Patient has assistance at home. She will be discharged home today after physical therapy in stable condition. Exam Vital Signs (past 8 hours): - 05/20/21 04:44 Temperature 97.7 F Pulse Rate 86 Respiratory Rate 18 Blood Pressure 126/49 L Pulse Oximetry 94 Oxygen Delivery Method Room Air Oxygen Flow Rate 0 Narrative Exam Narrative: Pleasant 75-year-old female resting comfortably in bed in no apparent distress. Motor functions intact bilateral lower extremities. Sensation grossly intact bilateral lower extremities. Dressing is Clean, dry, intact.. Objective Labs Result Diagrams: 05/19/21 05:45 [facility] Medical History Anxiety Arthritis Diabetes Heartburn HLD (hyperlipidemia) HTN (hypertension) Lumbar back pain with radiculopathy affecting right lower extremity Osteoarthritis of spine with radiculopathy, lumbosacral region Panic attacks Seizure disorder Turkish speaking patient Spinal stenosis of lumbar region at multiple levels Surgical History History of knee replacement (2012) History of lumbar surgery (1996) Hx of breast biopsy Hx of colonoscopy Social History household members: family Smoking Status: Never smoker alcohol intake: current Discharge Assessment & Plan Assessment and Plan Assessment: Patient progressing as expected Plan of Treatment: Discharge home today in stable condition Discharge Plan Discharge Plan Patient Disposition: Home Discharge orders & Medications Prescriptions: New acetaminophen 325 mg Tablet 650 mg PO Q6HR Qty: 60 0RF docusate sodium 100 mg Capsule 100 mg PO BID Qty: 20 0RF oxycodone 5 mg Tablet 5 mg PO Q3HR PRN (Reason: Pain, Severe (7-10)) Qty: 60 0RF Continued Lantus U-100 Insulin 100 unit/mL Solution 20 - 25 unit SUBCUT BEDTIME 0RF trazodone 50 mg Tablet 25 - 100 mg PO BEDTIME PRN (Reason: Sleep) 0RF alprazolam 1 mg Tablet 1 mg PO BEDTIME PRN (Reason: Panic attacks) 0RF metformin 850 mg Tablet 850 mg PO TID 0RF hydrochlorothiazide 25 mg Tablet 25 mg PO DAILY 0RF insulin lispro [Humalog U-100 Insulin] 100 unit/mL Solution 5 - 15 unit SUBCUT TID 0RF lovastatin 20 mg Tablet 20 mg PO DAILY 0RF losartan 50 mg Tablet 25 mg PO DAILY 0RF cyclobenzaprine 5 mg Tablet 10 mg PO BEDTIME PRN (Reason: Muscle Spasm) 0RF gabapentin 300 mg Capsule 600 mg PO BEDTIME 0RF Discontinued aspirin [Aspirin Low Dose] 81 mg Tablet,Delayed Release (Dr/Ec) 81 mg PO DAILY 0RF Follow up/Referrals: Arian Ferreira DO [Primary Care Provider] - Diet/Activity/Treatments Activity: Limit bending, twisting, lifting Cold/Heat Therapy: Apply ice to back as needed Skin/Wound/Dressing Care Report to your healthcare provider any signs of infection, such as:: chills, fever, increased pain, unusual drainage and unusual redness Dressing: Keep dressing clean and dry Visit Report/Discharge Packet Instructions: DI for Prescription Opioid Use, DI for Transforaminal Lumbar Interbody Fusion Stand Alone Forms: Surgery Discharge Discharge Data Primary Care Provider: Arian Ferreira Attending Provider: Jenifer Estes VTE Deep Vein Thrombosis/Pulmonary Embolism Present on Admission: No
[2021-05-20] MEDS: hydroCHLOROthiazide 25 MG TABLET PO (09:14)
[2021-05-20] MEDS: OXYCODONE IR 5 MG TABLET PO ×2 (09:14→13:30)
[2021-05-20 09:15] VITALS: BP 126/49; PULSE 86
[2021-05-20] MEDS: LOSARTAN 25 MG TABLET PO (09:15)
[2021-05-20] MEDS: DOCUSATE 100 MG CAPSULE PO (09:17)
[2021-05-20] MEDS: SODIUM CHLORIDE 0.9% FLUSH 10 ML IV (09:27)
--- NOTE | 2021-05-20 09:35 | PT.IPTN ---
Current Diagnoses Acute posthemorrhagic anemia (05/19/21) Epilepsy, unspecified, not intractable, without status epilepticus (05/19/21) Other spondylosis with radiculopathy, lumbosacral region (05/19/21) Spinal stenosis, lumbar region without neurogenic claudication (05/19/21) Radiculopathy, lumbar region (05/19/21) Arthrodesis status (05/19/21) Surgery Performed Operation Date: 05/18/21 07:45 Actual Procedures p L4-5, L5-S1 TLIF w. posterior instrumentation - Robot - Jenifer Estes MD Physical Therapy Treatment Note M2 PT-IP Current Condition Start: 05/18/21 15:12 Freq: NEEDED Status: Active Protocol: Document 05/20/21 09:09 SP (Rec: 05/20/21 13:08 SP [id number]) Physical Therapy Current Condition Current Condition Evaluation Date 05/19/21 Treatment Diagnosis s/p L4-5, L5S1 TLIF; difficulty in walking Onset Date 05/18/21 M3 PT-IP Subjective Start: 05/18/21 15:12 Freq: NEEDED Status: Active Protocol: Document 05/20/21 09:09 SP (Rec: 05/20/21 13:08 SP [id number]) Subjective Physical Therapy Visit Type Type Treatment Note Visit Start Time 09:09 Visit Stop Time 09:35 Total Visit Minutes 26 Notes Grand daughter (ORLY) provided translation to pt (pt mohawk speaking only), completed caregiver training: gait belt mgt, physical assist and cuing required throughout tx required. Number of DIRECTOR OF STRATEGIC COMMUNICATIONS Visits 1 Physical Therapy Visit Comments Patient Comments pt agreeable to do PT; grand daughter in room with pt Therapy Pain Assessment Pain When Pain Assessed During Mobility Pain Present Pain Present Pain Reported Location Back Intensity 4 Scale Used during mobility Pain Behaviors Facial Grimacing,Guarding Pain Management Techniques Distraction,Modification of Treatment,Re-positioning, Timing of Activity with Medications M4 PT-IP Mobility and Gait Start: 05/18/21 15:12 Freq: NEEDED Status: Active Protocol: Document 05/20/21 09:09 SP (Rec: 05/20/21 13:08 SP [id number]) PT-Bed Mobility Assessment Rolling Level of Assist Minimal Assistance,Moderate Assistance,1 Person Assistance Supine to Sit Supine to Sit Moderate Assistance,Maximum Assistance,1 Person Assistance Scooting Scooting to Edge of Bed Contact Guard Assistance PT-Transfer Assessment Sit to and From Stand Sit to and from Stand Minimal Assistance,1 Person Assistance,Use of Upper Extremities Equipment Transfer Assistive Device Gait Belt,Front Wheeled Walker Orthotic/Prosthetic Devices or Brace: No Transfers Transfer Destination Chair,Toilet Transfer Technique pt ambulated using fWW Transfer Ability Level of Assist Contact Guard Assistance, Minimal Assistance,1 Person Assistance,Use of Upper Extremities Comments Mobility Comments Pt required Mod A for L LR with cues for knee flexion and reach across body braced alignment roll. R SL>sit Mod- Max A x1 for trunk righting, DIRECTOR OF STRATEGIC COMMUNICATIONS cued for grand daughter hand placement under R shld for support trunk righting and tell pt to push from bed (no bed rails at home on bed will be using), scoot to EOB using BUE self CGA, sit w/ BUE supported. sit>stand Min A, cued for quad facilitation coming to standing. Ambulated to bathroom 8 ft w/ FWW CG- 10 %A, GD cued pt pivot and back up fully w/ FWW to toilet, reach back hip hinge Min A for slow descent to toilet. Pt complete self pericare from voiding. Sit>stand Min A with cues downward pressure 1 UE on FWW. Gait to sink 10 ft CGA, washed hands at sink CGA stable no LOB, unsupported balance. Gait into hallway approx 150 ft total fWW CGA, returned to chair in room CG- Min A with cues reach back slow descent, elevated BLE. Pt had call light and all needs in reach before left, GD in room. DIRECTOR OF STRATEGIC COMMUNICATIONS recommending / assist available which daughter and GD plan to give pt. Pt notified nursing and care mgt progress with pt and able return home with daughter / GD when medically cleared. Gait Assessment Gait Gait Assistance Required: Contact Guard Assist,Minimum Assistance,1 Person Assist Distance (Feet) 150 Able to Maintain Weight Bearing Status Yes During Gait Assistive Devices Assistive Device Gait Belt,Front Wheeled Walker Orthotic/Prosthetic Devices or Brace: No Gait Deviations General Gait Pattern Antalgic,Decreased Stride Length,Decreased Feet Clearance Factors Limiting Gait Function Factors Limiting Gait Function Decreased Activity Tolerance, Decreased Strength,Limited Range of Motion,Pain,Poor Balance,Poor Safety Awareness Comments Gait Comments see mobility details. GD stated pt has FWW at home will be using, not need to assess 4WW. Stair Climbing Assessment Comments Stair Climbing Comments pt doesn't have stairs. PT-Balance Assessment Sitting Balance and Reactions Static Sitting Balance Ability Good Dynamic Sitting Balance Ability Fair Standing Balance and Reactions Static Standing Balance Ability Good Dynamic Standing Balance Ability Fair Device Used FWW M5 PT-IP Objective Assessments Start: 05/18/21 15:12 Freq: NEEDED Status: Active Protocol: Document 05/19/21 09:20 AB (Rec: 05/19/21 12:42 AB [id number]) Orientation Orientation/Cognition Level of Alertness Alert Orientation Name,Place,Situation Language Function Ability Luxembourgish as Second Language Safety Awareness Decreased Safety Awareness Memory Description Short Term Impaired Gross Range of Motion Lower Extremity ROM Assessment Within Functional Limits Strength Lower Extremity Strength Assessment Right Impaired Hip 3+/5 Knee 3+/5 Sensation Assessment Sensation Gross Sensation Right LE Impaired,Left LE Impaired Sensation Description Tingling Comments Sensation Comments c/o tingling on B feet but has chronic tingling prior to sx Muscle Tone Muscle Tone WNL Yes M6 PT-IP Treatment Start: 05/18/21 15:12 Freq: NEEDED Status: Active Protocol: Document 05/20/21 09:09 SP (Rec: 05/20/21 13:08 SP [id number]) Physical Therapy Treatment Education Education Provided Safety M7 PT-IP Assessment and Plan Start: 05/18/21 15:12 Freq: NEEDED Status: Active Protocol: Document 05/20/21 09:09 SP (Rec: 05/20/21 13:08 SP [id number]) PT Summary Assessment and Plan Potential Rehabilitation Potential Good Status of Condition at Evaluation Evolving Summary Impairments Pain,ROM,Strength,Balance, Coordination,Sensation,Tone, Cognition,Bed Mobility, Transfers,Gait,Activity Tolerance Progress Towards Goals Progressing Toward Goals,Slow Progress due to Pain,Slow Progress due to Activity Tolerance Assessment Summary GD completed caregiver training. Pt required Mod- Max A bed mob, CG- Min A during transfers/ gait w/ FWW, further distance gait in hallway approx 150 ft. Pt is ok to return home with family 22/11 assist available, both able to provide. Pt would benefit from HHPT for progress strength and functional independence toward PLOF mob Mod I with no AD/ QC. Goals Bed Mobility Goal Standby Assistance Transfer Goal Standby Assistance,Front Wheeled Walker Gait Goal Standby Assistance,Front Wheel Walker Gait Distance 150 Days to Meet Goals 5 Frequency of Treatment Frequency Of Treatment Twice a Day Treatment Plan Physical Therapy Treatment Plan Bed Mobility Training,Transfer Training,Gait Training, Therapeutic Exercise,Balance Retraining,Post Op Education, Discharge Planning,Hot or Cold Pack,Neuromuscular Re-ed, Coordination Retraining,Manual Therapy Other Recommendations and Next Treatment bed mob, transfers, gait w/ Focus 4WW if safe. Precautions Lumbar Precautions Log Roll,No Twisting,Limit Bending,Lifting Restriction of 10 lbs,Gait Belt above Incisional Area Recommendations To Nursing Amount of Assist Needed 1 Person Assist Discharge Recommendations PT Discharge Recommendations Home with 22/11 Assist Available,Home Health Equipment Needed for Home Before Pt has FWW at home per GD will Discharge be using. Transportation Needs at Discharge Private Vehicle
--- NOTE | 2021-05-20 10:35 | OT.IP.TRT ---
Current Diagnoses Acute posthemorrhagic anemia (05/19/21) Epilepsy, unspecified, not intractable, without status epilepticus (05/19/21) Other spondylosis with radiculopathy, lumbosacral region (05/19/21) Spinal stenosis, lumbar region without neurogenic claudication (05/19/21) Radiculopathy, lumbar region (05/19/21) Arthrodesis status (05/19/21) Surgery Performed Operation Date: 05/18/21 07:45 Actual Procedures p L4-5, L5-S1 TLIF w. posterior instrumentation - Robot - Jenifer Estes MD Occupational Therapy Treatment Note M2 OT-IP Current Condition Start: 05/19/21 12:43 Freq: Status: Active Protocol: Document 05/19/21 11:07 [facility] (Rec: 05/19/21 13:00 [facility] [id number]) Occupational Therapy Current Condition Current Condition Evaluation Date 05/19/21 Treatment Diagnosis S/p L4-5, L5-S1 TLIF Diagnosis Onset Date 05/18/21 Post Operative Precautions Lumbar Precautions Log Roll,No Twisting,Limit Bending,Lifting Restriction of 10 lbs,Gait Belt above Incisional Area M3 OT- IP Subjective and Pain Start: 05/19/21 12:43 Freq: Status: Active Protocol: Document 05/20/21 10:35 [facility] (Rec: 05/20/21 10:51 [facility] [id number]) OT- Subjective Occupational Therapy Visit Type Type Treatment Note Visit Start Time 09:52 Visit Stop Time 10:35 Total Visit Minutes 43 Occupational Therapy Visit Comments Patient Comments Pt agreed to shower and pt's grand daughter present for caregiver training. Patient/Caregiver Goals TO go home. OT Pain Assessment Pain When Pain Assessed At Rest Pain Present Pain Present Pain Reported M4 OT- IP ADL's Start: 05/19/21 12:43 Freq: Status: Active Protocol: Document 05/20/21 10:35 [facility] (Rec: 05/20/21 10:51 [facility] [id number]) OT JJN-Gsen-Xped[place] General Evaluation Self-Feeding Ability Independent OT ADL-Grooming Comments OT Grooming Comments Not performed. OT ADL-Dressing General Eval Lower Body Dressing Ability Maximum Assistance Areas Needing Assistance Pants/Shorts,Socks,Shoes Comments OT Dressing Comments Pt's grand daughter assist pt for dressing needs. OT ADL-Toileting General Evaluation Toileting Ability Minimal Assistance Comments OT Toileting Comments Pt able to reach today appropriately with wet ones . Pt just needing asisst for clothing management needs. OT ADL-Bathing Bathing Type Bathing Type Shower General Evaluation Bathing Ability Maximal Assistance Comments OT Bathing Comments Pt's grand daughter able to assist pt for all showering needs with good safety. Educated best to cover the back dressing as it is not water resistant. M5 OT- IP IADL's Start: 05/19/21 12:43 Freq: Status: Active Protocol: Document 05/19/21 11:07 [facility] (Rec: 05/19/21 13:00 [facility] [id number]) OT-Instrumental Activities of Daily Living Home Safety Awareness Home Safety Comments Pt's family to be there to assist for all her needs at this time. M6 OT- IP Functional Cognition Start: 05/19/21 12:43 Freq: Status: Active Protocol: Document 05/20/21 10:35 [facility] (Rec: 05/20/21 10:51 [facility] [id number]) Cognitive Factors Limiting Selfcare Function Cognitive Comments Cognitive Assessment Comments Pt appears to be following directions better today as pt' s grand daughter able to translate. M7 OT- IP Mobility and Balance Start: 05/19/21 12:43 Freq: Status: Active Protocol: Document 05/20/21 10:35 [facility] (Rec: 05/20/21 10:51 [facility] [id number]) OT-Transfer Assessment Sit to and From Stand Sit to and from Stand Minimal Assistance,Moderate Assistance Transfers Transfer Ability Minimal Assistance,Moderate Assistance Technique Transfer Destination Chair,Shower Stall,Toilet Transfer Technique Stand Step Pivot Devices Transfer Assistive Devices Gait Belt,Front Wheeled Walker Comments Mobility Comments Pt's grand daughter able to don/doff with gait belt with good demonstration and able to provide good safety for transfer needs. OT- Balance Assessment Sitting Balance and Reactions Static Sitting Balance Ability Good Dynamic Sitting Balance Ability Fair Standing Balance and Reactions Static Standing Balance Ability Fair Dynamic Standing Balance Ability Poor M8 OT- IP Objective Assessments Start: 05/19/21 12:43 Freq: Status: Active Protocol: Document 05/19/21 11:07 [facility] (Rec: 05/19/21 13:00 [facility] [id number]) OT-Muscle Tone Assessment Muscle Tone WNL Yes M9 OT- IP Assessment and Plan Start: 05/19/21 12:43 Freq: Status: Active Protocol: Document 05/20/21 10:35 [facility] (Rec: 05/20/21 10:51 [facility] [id number]) OT Summary Assessment and Plan Potential Rehabilitation Potential Good Analytic Complexity at Evaluation Low Summary Progress Towards Goals Progressing Toward Goals Assessment Summary Pt's grand daughter present for caregiver training for mobility and ADl needs and able to show and demonstrate good safety for all needs. Pt looking to go home with her daughter and grand daughter to assist when medically stable. Goals Grooming Goal Independent Dressing Goal Minimal Assistance Toileting Goal Minimal Assistance Bathing Goal Minimal Assistance Toilet Transfer Goal Contact Guard Assistance Shower Transfer Goal Minimal Assistance Patient/Caregiver Education Goal Demonstrate Post-Op Precautions,Caregiver Independent Assisting Patient Days to Meet Goals 3 Frequency of Treatment Frequency Of Treatment Once a Day Treatment Plan OT Treatment Plan ADL Training,Functional Cognition Training,Functional Mobility,Patient/Family Education,Discharge Planning Discharge Recommendations OT Discharge Recommendations Home with 22/11 Assist Available Transportation Needs at Discharge Private Vehicle
[2021-05-20 13:16] VITALS: BP 157/73; PULSE 78
[2021-05-20] MEDS: INSULIN LISPRO 100 UNIT/ML 3ML VIAL SUBCUT (13:28)
--- NOTE | 2021-05-20 14:51 | PC.NURSE ---
Pt AOx4, reported pain of 7/10. Had visit with PT today and took shower. Oxy 5 given to alleviate discomfort and pt fell asleep. IV removed today, discharge instructions given to patient and her daughter.
== END 2021-05-20 14:55 | disposition home or self-care (01) ==
LOC: OR 09:04 → AC 09:04
PROVIDERS: Admitting Provider Orthopaedic Surgery Orthopaedic Surgery of the Spine; PCP Family Medicine; Referring Provider Family Medicine; Visit Provider Orthopaedic Surgery Orthopaedic Surgery of the Spine
PROC: (CPT 22633; principal; 2021-05-18 07:45)
DX: M48.061 Spinal stenosis, lumbar region without neurogenic claudication (principal); M96.1 Postlaminectomy syndrome, not elsewhere classified; M47.27 Other spondylosis with radiculopathy, lumbosacral region; D62 Acute posthemorrhagic anemia; G40.909 Epilepsy, unspecified, not intractable, without status epilepticus; E11.9 Type 2 diabetes mellitus without complications; F41.9 Anxiety disorder, unspecified; I10 Essential (primary) hypertension; E78.5 Hyperlipidemia, unspecified; Z79.84 Long term (current) use of oral hypoglycemic drugs; Z79.4 Long term (current) use of insulin
CPT/HCPCS: 22633; 22634; 22842; 22853 ×2; 20939; 63052; 63053; 36415; 72100; 76000; 82962; 85014; 85018; 97116; 97162; 97165; 97530; 97535; G0378; C1713; C9290; J0171; J0330; J0360; J0690; J1100; J1170; J1815; J1953; J2250; J2405; J2704; J3010